=== PATIENT | male | born 1950 | race Caucasian/White ===

== ENCOUNTER → 2016-12-25 | Day surgery (SDC) | payer MEDICARE, OTHER ==
[~2016-12-25] VITALS: Ht 185.4 cm; Wt 86.6 kg
[~2016-12-25] MED LIST: CARAFATE1 GM PO; CELEXA20 MG PO; INDERAL20 MG PO; LEVOTHROID (S100 MCG PO; NIFEREX-150) (150 MG PO; OMEPRAZOLE40 MG PO; PRILOSEC20 MG PO; PROPRANOLOL HCL20 MG PO; PROTONIX40 MG PO
== END | disposition disaster alternative care site (69) ==
LOC: GPOC 12-23 09:00 → GEND 09:52 → GPOC 12-28 07:00
PROC: 0DJ08ZZ Inspection of Upper Intestinal Tract, Via Natural or Artificial Opening Endoscopic (ICD-10-PCS; principal; 2016-12-25)
DX: K22.70 Barrett's esophagus without dysplasia (principal); K20.8 Other esophagitis; K31.89 Other diseases of stomach and duodenum; K92.1 Melena; E11.9 Type 2 diabetes mellitus without complications; Z88.2 Allergy status to sulfonamides; Z88.1 Allergy status to other antibiotic agents
CPT/HCPCS: J2001; J7030